=== PATIENT | female | born 1965 | race Hispanic/Latino ===

== ENCOUNTER 2017-02-01 16:51 | Emergency (ER) | payer MEDICARE, MEDICAID ==
[2017-02-01 17:05] VITALS: BMI 22.6
[2017-02-01 17:17] VITALS: BP 138/86; PULSE 63; RESP 17; TEMP 98.3; O2SAT 100
--- NOTE | 2017-02-01 17:21 | C.PDOC ---
History Of Present Illness 51 yr old female presents to the ER requesting refill for Haldol. Patient states she recently had her insurance changed therefore had to find a new psychiatrist. Patient states she ran out of her Haldol 3 days ago. Pt has an appointment with the new doctor on February 05. Notes she feels "good". Patient denies any suicidal ideation, homicidal ideation, chest pain, SOB, nausea, vomiting, weakness or numbness. Time Seen by Provider: 02/01/17 17:13 Chief Complaint (Nursing): Med Refill History Per: Patient History/Exam Limitations: no limitations Onset/Duration Of Symptoms: Unknown Past Medical History Reviewed: Historical Data, Nursing Documentation, Vital Signs Vital Signs: Last Vital Signs Temp 98.3 F 02/01/17 17:06 Pulse 63 02/01/17 17:06 Resp 17 02/01/17 17:06 BP 138/86 02/01/17 17:06 Pulse Ox 100 02/01/17 20:03 - Medical History PMH: Anxiety, Depression, Diabetes, Fractures, Hypothyroidism Family History: States: No Known Family Hx - Social History Hx Tobacco Use: Yes Hx Alcohol Use: Yes Hx Substance Use: No - Immunization History Hx Tetanus Toxoid Vaccination: Yes Hx Influenza Vaccination: No Hx Pneumococcal Vaccination: No Review Of Systems Except As Marked, All Systems Reviewed And Found Negative. Cardiovascular: Negative for: Chest Pain Respiratory: Negative for: Shortness of Breath Gastrointestinal: Negative for: Nausea, Vomiting Neurological: Negative for: Weakness, Numbness Psych: Negative for: Suicidal ideation Physical Exam - Physical Exam Appears: Well, Non-toxic, No Acute Distress Skin: Warm, Dry, No Rash Head: Atraumatic, Normacephalic Eye(s): bilateral: Normal Inspection, EOMI Nose: Normal Oral Mucosa: Moist Chest: Symmetrical Cardiovascular: No Rhythm Regular Respiratory: No Accessory Muscle Use Extremity: Normal ROM, No Swelling Neurological/Psych: Oriented x3, Normal Speech, Normal Motor Gait: Steady ED Course And Treatment O2 Sat by Pulse Oximetry: 100 Progress Note: Case discussed with Dr Marinelli, agreed upon plan and treatment. Disposition - Disposition Disposition: HOME/ ROUTINE Disposition Time: 17:22 Condition: STABLE Additional Instructions: Follow up with your primary medical doctor or clinic in 2-5 days for further evaluation. Prescriptions: Haloperidol [Haldol] 2 mg PO BID #10 tab Instructions: Medicine Refill (ED) - Clinical Impression Clinical Impression: Medication refill - PA / EL TEACHER / Resident Statement MD/DO has reviewed & agrees with the documentation as recorded. - Scribe Statement The provider has reviewed the documentation as recorded by the Scribe Cathy Aviles All medical record entries made by the Kendallibe were at my direction and personally dictated by me. I have reviewed the chart and agree that the record accurately reflects my personal performance of the history, physical exam, medical decision making, and the department course for this patient. I have also personally directed, reviewed, and agree with the discharge instructions and disposition.
== END 2017-02-01 17:29 | disposition home or self-care (01) ==
LOC: C.ER 16:51
DX: Z76.0 Encounter for issue of repeat prescription (principal)

== ENCOUNTER 2017-04-15 20:44 | Emergency (ER) | payer BC, MEDICAID ==
[2017-04-15 20:45] VITALS: BMI 22.6
[2017-04-15 20:52] VITALS: O2SAT 100
[2017-04-15] MEDS ORDERED: Sodium Chloride 0.9% 1,000 ML IV ONE (21:27)
[2017-04-15 21:32] LABS: BASO # 0.1 K/uL (0.0-0.2); EOS # 0.4 K/uL (0.0-0.7); EOS % 4.2 % (0.0-4.0); HEMOGLOBIN 14.6 g/dL (11.0-16.0); LYMPH # 3.2 K/uL (1.0-4.3); MEAN CELL VOLUME 95.7 fL (81.0-99.0); MEAN CORPUSCULAR HEMOGLOBIN 32.9 pg (27.0-31.0); MEAN CORPUSCULAR HGB CONC 34.4 g/dL (33.0-37.0); MEAN PLATELET VOLUME 8.1 fL (7.2-11.7); MONO # 0.7 K/uL (0.0-0.8); MONO % 7.4 % (0.0-10.0); NEUT # 4.6 K/uL (1.8-7.0); NEUT % 51.4 % (50.0-75.0); NRBC % 0.1 % (0.0-2.0); RBC 4.45 Mil/uL (3.80-5.20); RED CELL DISTRIBUTION WIDTH 12.8 % (11.5-14.5)
[2017-04-15] MEDS ORDERED: Sodium Chloride 0.9% 1,000 ML ONE (21:37)
[2017-04-15 21:44] LABS: HCG,QUALITATIVE URINE NEGATIVE (NEGATIVE); SQUAMOUS EPITHIAL 5 /hpf (0-5); URINE BACTERIA RARE (<OCC); URINE BILIRUBIN NEGATIVE (NEGATIVE); URINE BLOOD NEGATIVE (NEGATIVE); URINE CLARITY Clear (Clear); URINE COLOR Yellow (YELLOW); URINE GLUCOSE (UA) NORMAL (Normal); URINE LEUKOCYTE ESTERASE NEG Leu/uL (Negative); URINE NITRATE NEGATIVE (NEGATIVE); URINE PROTEIN NEGATIVE (NEGATIVE); URINE UROBILINOGEN NORMAL mg/dL (0.2-1.0)
[2017-04-15 21:45] LABS: GFR AFRICAN-AMERICAN > 60; GFR NON-AFRICAN AMERICAN > 60
[2017-04-15 21:46] LABS: ALB/GLOB RATIO 1.2 (1.0-2.1); ALT/SGPT 18 U/L (9-52); AST/SGOT 26 U/L (14-36); BLOOD UREA NITROGEN 15 mg/dL (7-17); CALCIUM 9.1 mg/dl (8.6-10.4)
--- NOTE | 2017-04-15 22:13 | C.PDOC ---
History Of Present Illness 51 year old female presents to the ED with complaints of nausea, vomiting, and mild abdominal pain for one week. Patient states she has been "very hot" as well and thinks she may be . LMP was two weeks ago, has not taken home test. Patient denies fever, cough, runny nose, sore throat, chest pain, SOB, dysuria/hematuria, vaginal discharge. Time Seen by Provider: 04/15/17 20:55 Chief Complaint (Nursing): Abdominal Pain History Per: Patient History/Exam Limitations: no limitations Onset/Duration Of Symptoms: Days (one week ) Current Symptoms Are (Timing): Still Present Severity: Mild Location Of Pain/Discomfort: Diffuse Quality Of Discomfort: "Pain" Associated Symptoms: Nausea, Vomiting. denies: Fever, Chills Abnormal Vaginal Bleeding: No Past Medical History Reviewed: Historical Data, Nursing Documentation, Vital Signs Vital Signs: Last Vital Signs Temp 97.8 F 04/15/17 22:16 Pulse 65 04/15/17 22:16 Resp 16 04/15/17 22:16 BP 128/76 04/15/17 22:16 Pulse Ox 100 04/16/17 00:48 - Medical History PMH: Anxiety, Depression, Diabetes, Fractures, Hypothyroidism Family History: States: No Known Family Hx - Social History Hx Tobacco Use: Yes Hx Alcohol Use: Yes Hx Substance Use: No - Immunization History Hx Tetanus Toxoid Vaccination: Yes Hx Influenza Vaccination: No Hx Pneumococcal Vaccination: No Review Of Systems Except As Marked, All Systems Reviewed And Found Negative. Constitutional: Negative for: Fever, Chills Cardiovascular: Negative for: Chest Pain, Palpitations Respiratory: Negative for: Cough, Shortness of Breath Gastrointestinal: Positive for: Nausea, Vomiting, Abdominal Pain. Negative for : Diarrhea Genitourinary: Negative for: Dysuria Physical Exam - Physical Exam Appears: Well, Non-toxic, No Acute Distress Skin: Warm, Dry Head: Normacephalic Eye(s): bilateral: Normal Inspection Oral Mucosa: Moist Neck: Supple Cardiovascular: Rhythm Regular Respiratory: Normal Breath Sounds, No Rales, No Rhonchi, No Wheezing Gastrointestinal/Abdominal: Normal Exam, Bowel Sounds, Soft, No Tenderness Back: No CVA Tenderness Extremity: Normal ROM, No Tenderness Neurological/Psych: Oriented x3 ED Course And Treatment - Laboratory Results Result Diagrams: 04/15/17 21:27 04/15/17 21:27 O2 Sat by Pulse Oximetry: 100 (room air ) Pulse Ox Interpretation: Normal Progress Note: Blood work, UA, Upreg ordered and reviewed. Patient givan IV NS bolus, IV zofran. Reevaluation Time: 22:15 Reassessment Condition: Improved (Patient reassessed, is resting comfortably and states she feels well. On exam, abdomen is soft and nontender. Blood work , UA, Upreg unremarkable. Patient is well appearing, with normal vitals. Rx given for Zofran ODT, was instructed to drink plenty of fluids and follow up with PMD/clinic in 1-2 days. She understands she should return to ED if symptoms worsen.) Disposition Counseled Patient/Family Regarding: Studies Performed, Diagnosis, Need For Followup, Rx Given - Disposition Referrals: César Valenzuela MD [Medical Doctor] - Disposition: HOME/ ROUTINE Disposition Time: 22:15 Condition: STABLE Additional Instructions: FOLLOW UP WITH YOUR DOCTOR IN 1-2 DAYS DRINK PLENTY OF CLEAR FLUIDS USE MEDICATION FOR NAUSEA NEEDED RETURN TO ER IF SYMPTOMS WORSEN Prescriptions: Ondansetron [Zofran Odt] 4 mg PO Q8 PRN #10 odt PRN Reason: Nausea/Vomiting Instructions: Acute Nausea and Vomiting (ED) Print Language: JAPANESE - POA Present On Arrival: None - Clinical Impression Clinical Impression: Nausea, Vomiting - Scribe Statement The provider has reviewed the documentation as recorded by the Scribe Lorena Vu All medical record entries made by the Scribe were at my direction and personally dictated by me. I have reviewed the chart and agree that the record accurately reflects my personal performance of the history, physical exam, medical decision making, and the department course for this patient. I have also personally directed, reviewed, and agree with the discharge instructions and disposition.
[2017-04-15 22:17] VITALS: BP 128/76; PULSE 65; RESP 16; TEMP 97.8
== END 2017-04-15 22:26 | disposition home or self-care (01) ==
LOC: C.ER 20:44
DX: R11.2 Nausea with vomiting, unspecified (principal)
CPT/HCPCS: 80053; 81001; 82550; 82948; 84703; 85025; 96361; 96374; 99283; J2405; J7040

== ENCOUNTER 2017-09-25 23:18 | Emergency (ER) | payer OTHER, MEDICAID ==
[2017-09-25 23:18] VITALS: BMI 22.6
[2017-09-25 23:26] VITALS: RESP 16
[2017-09-25] MEDS ORDERED: Sodium Chloride 0.9% 1,000 ML IV ONE (23:53)
[2017-09-26 00:05] LABS: BASO # 0.1 K/uL (0.0-0.2); BASO % 1.1 % (0.0-2.0); EOS # 0.5 K/uL (0.0-0.7); EOS % 4.2 % (0.0-4.0); HEMATOCRIT 46.4 % (34.0-47.0); LYMPH # 3.3 K/uL (1.0-4.3); LYMPH % 29.4 % (20.0-40.0); MEAN CELL VOLUME 95.9 fL (81.0-99.0); MEAN CORPUSCULAR HEMOGLOBIN 32.8 pg (27.0-31.0); MEAN CORPUSCULAR HGB CONC 34.2 g/dL (33.0-37.0); MEAN PLATELET VOLUME 8.2 fL (7.2-11.7); MONO % 8.7 % (0.0-10.0); NRBC % 0.1 % (0.0-2.0); RED CELL DISTRIBUTION WIDTH 13.1 % (11.5-14.5); WHITE BLOOD COUNT 11.4 K/uL (4.8-10.8)
[2017-09-26 00:19] LABS: BILIRUBIN,TOTAL 0.6 mg/dL (0.2-1.3); CALCIUM 8.8 mg/dl (8.6-10.4); GFR AFRICAN-AMERICAN > 60; GLUCOSE,RANDOM 192 mg/dL (65-105); TOTAL PROTEIN 8.4 g/dL (6.3-8.3)
--- NOTE | 2017-09-26 00:19 | C.PDOC ---
History Of Present Illness 51 year old female presents to the ED for evaluation of diarrhea which has been intermittent for "years" but worsened today. Patient reports having 10-15 episodes of watery diarrhea associated with diffuse lower abdominal pain and cramping. Patient states her stool was initially green then progressed to a brown, coffee-ground color. Patient denies fever, chills, nausea, vomiting, and sick contacts. Time Seen by Provider: 09/25/17 23:42 Chief Complaint (Nursing): Abdominal Pain History Per: Patient History/Exam Limitations: no limitations Onset/Duration Of Symptoms: Hrs, Intermittent Episodes ("years") Current Symptoms Are (Timing): Worse Location Of Pain/Discomfort: Other (lower ) Radiation Of Pain To:: None Quality Of Discomfort: Cramping, "Pain" Associated Symptoms: Diarrhea. denies: Fever, Chills, Nausea, Vomiting Additional History Per: Patient Abnormal Vaginal Bleeding: No Past Medical History Reviewed: Historical Data, Nursing Documentation, Vital Signs Vital Signs: Last Vital Signs Temp 97.3 F L 09/25/17 23:20 Pulse 97 H 09/25/17 23:20 Resp 16 09/25/17 23:20 BP 142/91 H 09/25/17 23:20 Pulse Ox 96 09/26/17 00:28 - Medical History PMH: Anxiety, Depression, Diabetes, Fractures, Hypothyroidism Surgical History: No Surg Hx Family History: States: Unknown Family Hx - Social History Hx Tobacco Use: Yes Hx Alcohol Use: Yes Hx Substance Use: No - Immunization History Hx Tetanus Toxoid Vaccination: Yes Hx Influenza Vaccination: No Hx Pneumococcal Vaccination: No Review Of Systems Constitutional: Negative for: Fever, Chills Gastrointestinal: Positive for: Abdominal Pain (lower ), Diarrhea. Negative for : Nausea, Vomiting Physical Exam - Physical Exam Appears: Non-toxic, No Acute Distress Skin: Normal Color, Warm, Dry Oral Mucosa: Moist Neck: Supple Chest: Symmetrical, No Deformity, No Tenderness Cardiovascular: Rhythm Regular, No Murmur Respiratory: Normal Breath Sounds, No Rales, No Rhonchi, No Wheezing Gastrointestinal/Abdominal: Bowel Sounds (hyperactive ), Soft, Tenderness (to lower abdomen on palpation ), No Guarding, No Rebound Rectal: Other (empty vault with red-brown mucous-like streaking ) Extremity: Normal ROM, Capillary Refill (less than 2 seconds ) Neurological/Psych: Oriented x3, Normal Speech, Normal Cognition Gait: Steady ED Course And Treatment - Laboratory Results Result Diagrams: 09/25/17 23:59 09/25/17 23:59 Lab Interpretation: No Acute Changes O2 Sat by Pulse Oximetry: 96 (on RA) Pulse Ox Interpretation: Normal Progress Note: Bloodwork and urinalysis ordered and reviewed. IV fluids administered. Reevaluation Time: 00:47 Reassessment Condition: Improved (after IV vluids) Disposition Counseled Patient/Family Regarding: Studies Performed, Diagnosis, Need For Followup - Disposition Referrals: César Valenzuela MD [Medical Doctor] - Disposition: HOME/ ROUTINE Disposition Time: 00:47 Condition: STABLE Instructions: Acute Diarrhea (ED), Nutrition Tips for Relief of Diarrhea (ED) Forms: [employer] (Thai) - Clinical Impression Clinical Impression: Diarrhea - Scribe Statement The provider has reviewed the documentation as recorded by the Scribe (Selena Anand) Provider Attestation: All medical record entries made by the Scribe were at my direction and personally dictated by me. I have reviewed the chart and agree that the record accurately reflects my personal performance of the history, physical exam, medical decision making, and the department course for this patient. I have also personally directed, reviewed, and agree with the discharge instructions and disposition.
[2017-09-26 00:40] LABS: ALKALINE PHOSPHATASE 83 U/L (38-126); ALT/SGPT 35 U/L (9-52); AST/SGOT 25 U/L (14-36); BLOOD UREA NITROGEN 10 mg/dL (7-17); CARBON DIOXIDE 26 mmol/L (22-30); CHLORIDE 102 mmol/L (98-107); POTASSIUM 4.3 mmol/L (3.6-5.2); SODIUM 134 mmol/L (132-148)
[2017-09-26 00:51] VITALS: BP 147/87; PULSE 79; TEMP 97.2; O2SAT 97
== END 2017-09-26 00:57 | disposition home or self-care (01) ==
LOC: C.ER 23:18
DX: R19.7 Diarrhea, unspecified (principal)
CPT/HCPCS: 80053; 83690; 85025; 96360; 99283; G0328; J7040

== ENCOUNTER 2017-12-25 18:36 | Emergency (ER) | payer OTHER, MEDICAID ==
[2017-12-25 18:42] VITALS: BMI 28.0
[2017-12-25 18:44] VITALS: RESP 18; O2SAT 99
[2017-12-25] MEDS ORDERED: Sodium Chloride 0.9% 1,000 ML IV ONE (19:32)
--- NOTE | 2017-12-25 19:32 | C.PDOC ---
History Of Present Illness The patient presents to the ED for evaluation of abdominal pain and diarrhea which began around 2 days ago. Patient reports having multiple episodes of liquid-like stools, mild nausea and decreased PO intake. Patient was advised by her PMD to present to the ED for further evaluation. She denies fever, chills, and vomiting. Time Seen by Provider: 12/25/17 19:31 Chief Complaint (Nursing): Abdominal Pain History Per: Patient History/Exam Limitations: no limitations Onset/Duration Of Symptoms: Days (2) Current Symptoms Are (Timing): Still Present Severity: Mild Pain Scale Rating Of: 2 Location Of Pain/Discomfort: Diffuse Radiation Of Pain To:: None Quality Of Discomfort: "Pain" Associated Symptoms: Nausea, Diarrhea. denies: Fever, Chills, Vomiting Exacerbating Factors: None Alleviating Factors: None Last Bowel Movement: Today Recent travel outside of the [place]: No Additional History Per: Patient Abnormal Vaginal Bleeding: No Past Medical History Reviewed: Historical Data, Nursing Documentation, Vital Signs Vital Signs: Last Vital Signs Temp 97.6 F 12/25/17 21:05 Pulse 79 12/25/17 21:05 Resp 18 12/25/17 21:05 BP 101/62 12/25/17 21:05 Pulse Ox 99 12/25/17 21:08 - Medical History PMH: Anxiety, Depression, Diabetes, Fractures, Hypothyroidism Surgical History: No Surg Hx Family History: States: Unknown Family Hx - Social History Hx Tobacco Use: Yes Hx Alcohol Use: Yes Hx Substance Use: No - Immunization History Hx Tetanus Toxoid Vaccination: No Hx Influenza Vaccination: No Hx Pneumococcal Vaccination: No Review Of Systems Constitutional: Negative for: Fever, Chills Cardiovascular: Negative for: Chest Pain, Palpitations Respiratory: Negative for: Cough, Shortness of Breath Gastrointestinal: Positive for: Nausea, Abdominal Pain, Diarrhea. Negative for : Vomiting Genitourinary: Negative for: Dysuria, Hematuria Skin: Negative for: Rash, Lesions, Jaundice, Bruising Neurological: Negative for: Weakness, Numbness Physical Exam - Physical Exam Appears: Non-toxic, No Acute Distress Skin: Warm, Dry Head: Normacephalic Eye(s): bilateral: Normal Inspection Oral Mucosa: Moist Neck: Supple Chest: Symmetrical, No Deformity, No Tenderness Cardiovascular: Rhythm Regular, No Murmur Respiratory: No Rales, No Rhonchi, No Wheezing Gastrointestinal/Abdominal: Soft, Tenderness (mild, diffuse ), No Guarding, No Rebound, Other (tympanic to percussion ) Extremity: Normal ROM, Capillary Refill (less than 2 seconds ) Neurological/Psych: Oriented x3 Gait: Steady ED Course And Treatment - Laboratory Results Result Diagrams: 12/25/17 19:49 12/25/17 19:49 O2 Sat by Pulse Oximetry: 99 (on RA ) Pulse Ox Interpretation: Normal Progress Note: Bloodwork and urinalysis ordered and reviewed. Pepcid IVP, Zofran IVP, and IV Fluids administered. Reevaluation Time: 21:30 Reassessment Condition: Improved Disposition Counseled Patient/Family Regarding: Studies Performed, Diagnosis, Need For Followup - Disposition Disposition: HOME/ ROUTINE Disposition Time: 19:32 Condition: FAIR Additional Instructions: May use kaopectate for the diarrhea Prescriptions: Ondansetron ODT [Zofran ODT] 4 mg PO BID PRN #10 odt PRN Reason: Nausea/Vomiting Instructions: Diarrhea in Adolescents and Adults Forms: [employer] (Romansh) - Clinical Impression Clinical Impression: Abdominal pain, Diarrhea - Scribe Statement The provider has reviewed the documentation as recorded by the Scribe (Selena Anand) Provider Attestation: All medical record entries made by the Scribe were at my direction and personally dictated by me. I have reviewed the chart and agree that the record accurately reflects my personal performance of the history, physical exam, medical decision making, and the department course for this patient. I have also personally directed, reviewed, and agree with the discharge instructions and disposition.
[2017-12-25 19:54] LABS: BASO # 0.1 K/uL (0.0-0.2); BASO % 0.8 % (0.0-2.0); EOS # 0.3 K/uL (0.0-0.7); HEMOGLOBIN 14.7 g/dL (11.0-16.0); LYMPH # 2.7 K/uL (1.0-4.3); LYMPH % 30.9 % (20.0-40.0); MEAN CELL VOLUME 95.8 fL (81.0-99.0); MEAN CORPUSCULAR HEMOGLOBIN 33.3 pg (27.0-31.0); MEAN CORPUSCULAR HGB CONC 34.7 g/dL (33.0-37.0); MEAN PLATELET VOLUME 7.5 fL (7.2-11.7); MONO # 0.6 K/uL (0.0-0.8); MONO % 6.7 % (0.0-10.0); NEUT # 5.1 K/uL (1.8-7.0); NEUT % 58.6 % (50.0-75.0); NRBC % 0.1 % (0.0-2.0); RBC 4.42 Mil/uL (3.80-5.20); RED CELL DISTRIBUTION WIDTH 12.9 % (11.5-14.5); WHITE BLOOD COUNT 8.6 K/uL (4.8-10.8)
[2017-12-25] MEDS ORDERED: Sodium Chloride 0.9% 1,000 ML ONE (19:55)
[2017-12-25 20:04] LABS: INR 0.9; PROTHROMBIN TIME 9.7 SECONDS (9.7-12.2)
[2017-12-25 20:05] LABS: SQUAMOUS EPITHIAL 7 /hpf (0-5); URINE BACTERIA RARE (<OCC); URINE BILIRUBIN NEGATIVE (NEGATIVE); URINE CLARITY Hazy (Clear); URINE COLOR Yellow (YELLOW); URINE GLUCOSE (UA) 3+ mg/dL (Normal); URINE LEUKOCYTE ESTERASE NEG Leu/uL (Negative); URINE PROTEIN NEGATIVE (NEGATIVE); URINE UROBILINOGEN NORMAL mg/dL (0.2-1.0)
[2017-12-25 20:11] LABS: ALB/GLOB RATIO 1.3 (1.0-2.1); ALBUMIN 3.8 g/dL (3.5-5.0); ALT/SGPT 17 U/L (9-52); AST/SGOT 20 U/L (14-36); BLOOD UREA NITROGEN 8 mg/dL (7-17); GFR AFRICAN-AMERICAN > 60; GFR NON-AFRICAN AMERICAN > 60; LIPASE 28 U/L (23-300); URINE BLOOD TRACE (NEGATIVE)
[2017-12-25 21:06] VITALS: BP 101/62; PULSE 79; TEMP 97.6
== END 2017-12-25 21:47 | disposition home or self-care (01) ==
LOC: C.ER 18:36
DX: R19.7 Diarrhea, unspecified (principal); R10.9 Unspecified abdominal pain; E11.9 Type 2 diabetes mellitus without complications; E03.9 Hypothyroidism, unspecified; Z72.0 Tobacco use
CPT/HCPCS: 80053; 81001; 83690; 85025; 85610; 85730; 96361; 96374; 96375; 99284; J2405; J7040

== ENCOUNTER 2018-01-18 14:57 | Emergency (ER) | payer MEDICARE, MEDICAID ==
[2018-01-18 14:57] VITALS: BMI 28.0
[2018-01-18 15:16] VITALS: BP 117/84; PULSE 98; RESP 18; TEMP 98.1; O2SAT 96
--- NOTE | 2018-01-18 15:32 | C.PDOC ---
History Of Present Illness Jeannie Irwin is a 52 year old female, with a past medical history of diabetes, who presents to the emergency department complaining of swelling and pain around the nail bed of the right thumb onset for x2 weeks. Patient states boyfriend has been poking it with clean needle and pus has been coming out. Patient is also complaining of an itchy vaginal discharge onset for x1 month. She reports similar symptoms in the past due to yeast infection. She is currently on her menses. She denies any other medical complaints. PMD: None provided. Time Seen by Provider: 01/18/18 15:12 Chief Complaint (Nursing): Finger,Hand,&Wrist History Per: Patient History/Exam Limitations: no limitations Onset/Duration Of Symptoms: Days (x2 weeks) Current Symptoms Are (Timing): Still Present Past Medical History Reviewed: Historical Data, Nursing Documentation, Vital Signs Vital Signs: Last Vital Signs Temp 98.1 F 01/18/18 15:12 Pulse 98 H 01/18/18 15:12 Resp 18 01/18/18 15:12 BP 117/84 01/18/18 15:12 Pulse Ox 96 01/18/18 15:35 - Medical History PMH: Anxiety, Depression, Diabetes, Fractures, Hypothyroidism Surgical History: No Surg Hx Family History: States: Unknown Family Hx - Social History Hx Tobacco Use: Yes Hx Alcohol Use: Yes Hx Substance Use: No - Immunization History Hx Tetanus Toxoid Vaccination: Yes Hx Influenza Vaccination: No Hx Pneumococcal Vaccination: No Review Of Systems Except As Marked, All Systems Reviewed And Found Negative. Genitourinary: Positive for: Vaginal Discharge (itchy) Musculoskeletal: Positive for: Hand Pain (swelling and pain around the nail bed of the right thumb) Physical Exam - Physical Exam Appears: Other (comfortable) Skin: Normal Color, Warm, Dry Head: Atraumatic, Normacephalic Eye(s): bilateral: Normal Inspection, PERRL, EOMI Neck: Normal ROM Chest: Symmetrical Cardiovascular: Rhythm Regular, No Murmur Respiratory: Normal Breath Sounds, No Wheezing Gastrointestinal/Abdominal: Normal Exam, Soft, No Tenderness Pelvic: Other (Patient refused pelvic because she currently has menses) Extremity: Normal ROM (upper extremities), No Deformity, Swelling (Right thumb around the nail bed, swollen and erythematous but no purulent discharge) Neurological/Psych: Oriented x3 ED Course And Treatment O2 Sat by Pulse Oximetry: 96 (RA) Pulse Ox Interpretation: Normal Progress Note: Initial Impression: Paronychia, vaginal yeast infection. Initial Plan: -Cleocin 300 mg PO Diflucan 200 mg PO. Patient is medical stable for discharge with prescriptions for cleocin for finger, diflucan for yeast infection, and probiotic. Patient advised not to take probiotic at the same time as abx and to follow up with outpatient health clinic. Disposition Counseled Patient/Family Regarding: Diagnosis, Need For Followup, Rx Given - Disposition Referrals: [facility] [Outside] Disposition: HOME/ ROUTINE Disposition Time: 15:30 Condition: STABLE Additional Instructions: FOLLOW UP WITH YOUR DOCTOR/CLINIC IN 1-2 DAYS USE MEDICATIONS DIRECTED, DO NOT TAKE PROBIOTIC AT SAME TIME ANTIBIOTIC RETURN TO ER IF SYMPTOMS WORSEN Prescriptions: Clindamycin [Cleocin] 300 mg PO TID #21 cap Fluconazole [Diflucan] 150 mg PO DAILY #1 tab Lactobacillus Combination No.4 [Probiotic] 1 each PO DAILY #10 capsule Instructions: Vaginal Yeast Infection (DC), Paronychia (DC) Forms: [employer] (C[place] Rican) Print Language: CAMBODIAN - POA Present On Arrival: None - Clinical Impression Clinical Impression: Paronychia, Vulvovaginal candidiasis - Scribe Statement The provider has reviewed the documentation as recorded by the Reji Sigala Provider Attestation: All medical record entries made by the Reji were at my direction and personally dictated by me. I have reviewed the chart and agree that the record accurately reflects my personal performance of the history, physical exam, medical decision making, and the department course for this patient. I have also personally directed, reviewed, and agree with the discharge instructions and disposition.
== END 2018-01-18 15:48 | disposition home or self-care (01) ==
LOC: C.ER 14:57
DX: L03.011 Cellulitis of right finger (principal); B37.3 Candidiasis of vulva and vagina

== ENCOUNTER 2018-04-20 15:55 | Emergency (ER) | payer MEDICARE, MEDICAID ==
[2018-04-20 16:20] VITALS: BMI 23.9
--- NOTE | 2018-04-20 16:31 | C.PDOC ---
History Of Present Illness 52 y/o female presents to the ED requesting a medication refill for klonopin. States she ran out 4 days ago and has not been able to see her psychiatrist this week. Patient complains of feeling anxious. Otherwise has no headaches, dizziness, or other complaints. Time Seen by Provider: 04/20/18 16:10 Chief Complaint (Nursing): Med Refill History Per: Patient History/Exam Limitations: no limitations Onset/Duration Of Symptoms: Days Current Symptoms Are (Timing): Still Present Past Medical History Reviewed: Historical Data, Nursing Documentation, Vital Signs Vital Signs: Last Vital Signs Temp Pulse Resp 18 04/20/18 16:36 BP Pulse Ox - Medical History PMH: Anxiety, Depression, Diabetes, Fractures, Hypothyroidism Family History: States: Unknown Family Hx - Social History Hx Tobacco Use: Yes Hx Alcohol Use: Yes Hx Substance Use: No - Immunization History Hx Tetanus Toxoid Vaccination: Yes Hx Influenza Vaccination: No Hx Pneumococcal Vaccination: No Review Of Systems Except As Marked, All Systems Reviewed And Found Negative. Constitutional: Negative for: Fever Neurological: Negative for: Seizures, Headache, Dizziness Psych: Positive for: Anxiety Physical Exam - Physical Exam Appears: Non-toxic, No Acute Distress Skin: Normal Color, Warm, Dry Head: Atraumatic, Normacephalic Eye(s): bilateral: Normal Inspection Nose: Normal Neck: Normal ROM, Supple Chest: Symmetrical, No Deformity Respiratory: No Accessory Muscle Use, Other (No respiratory distress) Extremity: Bilateral: Atraumatic, Normal Color And Temperature Pulses: Left Dorsalis Pedis: Normal, Right Dorsalis Pedis: Normal Neurological/Psych: Oriented x3, Normal Speech Gait: Steady Medical Decision Making Medical Decision Making: Impression: 52 y/o F requesting med refill Time: 16:33 Initial Plan: --Ativan 1 mg PO Patient provided with resources for [facility] outpatient psychiatric services. Stable for d/c home. Disposition Counseled Patient/Family Regarding: Diagnosis, Need For Followup - Disposition Disposition: HOME/ ROUTINE Disposition Time: 16:39 Condition: STABLE Additional Instructions: [facility] Mental health service in [place], [place] Address: [address] [place] [id number] Hours: Open Closes 6PM Instructions: Anxiety, Adult (DC) Forms: [employer] (Wolof) - POA Present On Arrival: None - Clinical Impression Clinical Impression: Anxiety - Scribe Statement The provider has reviewed the documentation as recorded by the Scribe Ashley Villavicencio Provider Attestation: All medical record entries made by the Kendallibe were at my direction and personally dictated by me. I have reviewed the chart and agree that the record accurately reflects my personal performance of the history, physical exam, medical decision making, and the department course for this patient. I have also personally directed, reviewed, and agree with the discharge instructions and disposition.
[2018-04-20 16:42] VITALS: RESP 18
== END 2018-04-20 16:42 | disposition home or self-care (01) ==
LOC: C.ER 15:55
DX: F41.9 Anxiety disorder, unspecified (principal)

== ENCOUNTER 2018-06-07 15:50 | Emergency (ER) | payer MEDICARE ==
[2018-06-07 15:56] VITALS: BMI 23.0
[2018-06-07 15:58] VITALS: BP 104/75; PULSE 90; RESP 18; TEMP 97.7; O2SAT 100
--- NOTE | 2018-06-07 16:49 | C.PDOC ---
History Of Present Illness 52 year old female, with history of NIDDM, presents to the emergency department with complaints of itchy vaginal discharge and white spots on tongue. Patient has been noncompliant with metformin for the past 2 weeks because she has been taking exams. also, unable to check her sugar level at home due to machine being broke since a month ago and has not followed up with pmd.. She denies any abdominal pain, fever, or chills. denies dysuria, frequency or urgency. Time Seen by Provider: 06/07/18 16:08 Chief Complaint (Nursing): Female Genitourinary History Per: Patient History/Exam Limitations: no limitations Onset/Duration Of Symptoms: Days Current Symptoms Are (Timing): Still Present Past Medical History Reviewed: Historical Data, Nursing Documentation, Vital Signs Vital Signs: Last Vital Signs Temp 97.7 F 06/07/18 16:11 Pulse 90 06/07/18 16:11 Resp 18 06/07/18 16:11 BP 104/75 06/07/18 16:11 Pulse Ox 100 06/07/18 22:13 - Medical History PMH: Anxiety, Depression, Diabetes, Fractures, Hypothyroidism Family History: States: No Known Family Hx - Social History Hx Tobacco Use: Yes Hx Alcohol Use: Yes Hx Substance Use: No - Immunization History Hx Tetanus Toxoid Vaccination: Yes Hx Influenza Vaccination: No Hx Pneumococcal Vaccination: No Review Of Systems Constitutional: Negative for: Fever, Chills ENT: Positive for: Other (white spots on tongue) Cardiovascular: Negative for: Chest Pain Respiratory: Negative for: Shortness of Breath Gastrointestinal: Negative for: Nausea, Vomiting, Abdominal Pain Genitourinary: Positive for: Vaginal Discharge. Negative for: Dysuria Neurological: Negative for: Weakness, Numbness Physical Exam - Physical Exam Appears: Non-toxic, No Acute Distress Skin: Warm, Dry Head: Atraumatic, Normacephalic Eye(s): bilateral: Normal Inspection Oral Mucosa: Moist, Other (no white spots noted) Tongue: No Other (white spots) Lips: Normal Appearing Teeth: Normal Dentition Gingiva: Normal Appearing Neck: Supple Cardiovascular: Rhythm Regular, No Murmur Respiratory: Normal Breath Sounds, No Rales, No Rhonchi, No Wheezing Gastrointestinal/Abdominal: Soft, No Tenderness, No Distention Pelvic: Other (Patient declines exam to be done) Neurological/Psych: Oriented x3, Normal Speech ED Course And Treatment O2 Sat by Pulse Oximetry: 100 (RA) Pulse Ox Interpretation: Normal Medical Decision Making Medical Decision Making: Plan: -Labs -Urinalysis 1703 long conversation had with pt regarding compliance with medications and potential complications of uncontrolled dm. pt agrees to start metformin this evening. declines pelvic exam. advised to see her pmd sarha for rx for new glucometer, as well as follow up with calendar control clerk blood bank Disposition Counseled Patient/Family Regarding: Studies Performed, Diagnosis, Need For Followup, Rx Given - Disposition Referrals: César Valenzuela MD [Medical Doctor] - Disposition: HOME/ ROUTINE Disposition Time: 17:05 Condition: GOOD Additional Instructions: Please follow up with Dr Valenzuela as soon as possible- you need to get prescription for a new glucometer. Use one applicator of ointment in vagina at night for the next week. Repeat takig pill in 3 days if symptoms not improving. Follow up with your calendar control clerk blood bank as well. Prescriptions: Fluconazole [Diflucan] 150 mg PO ONCE #1 tab Miconazole/Cleanser 17 On Wipe [Monistat 7 Combination Pack] 1 each VG HS #1 kit Instructions: Vaginal Yeast Infection (DC) Forms: [facility] (Luxembourgish), General Discharge Instructions - Clinical Impression Clinical Impression: Vulvovaginal candidiasis, Hyperglycemia due to type 2 diabetes mellitus - PA / MATERIAL HANDLER 1ST SHIFT / Resident Statement MD/DO has reviewed & agrees with the documentation as recorded. - Scribe Statement The provider has reviewed the documentation as recorded by the Scribe Adrianna Ramirez All medical record entries made by the Scribe were at my direction and personally dictated by me. I have reviewed the chart and agree that the record accurately reflects my personal performance of the history, physical exam, medical decision making, and the department course for this patient. I have also personally directed, reviewed, and agree with the discharge instructions and disposition.
[2018-06-07 16:52] LABS: SQUAMOUS EPITHIAL 27 /hpf (0-5); URINE BACTERIA FEW (<OCC); URINE BILIRUBIN NEGATIVE (NEGATIVE); URINE BLOOD NEGATIVE (NEGATIVE); URINE CLARITY Hazy (Clear); URINE COLOR Yellow (YELLOW); URINE GLUCOSE (UA) 3+ mg/dL (Normal); URINE LEUKOCYTE ESTERASE TRACE Leu/uL (Negative); URINE PROTEIN NEGATIVE (NEGATIVE); URINE UROBILINOGEN NORMAL mg/dL (0.2-1.0)
[2018-06-07 16:53] LABS: HCG,QUALITATIVE URINE NEGATIVE (NEGATIVE)
== END 2018-06-07 17:17 | disposition home or self-care (01) ==
LOC: C.ER 15:50
DX: B37.3 Candidiasis of vulva and vagina (principal); E11.65 Type 2 diabetes mellitus with hyperglycemia; E03.9 Hypothyroidism, unspecified; Z72.0 Tobacco use

== ENCOUNTER 2018-07-18 15:10 | Inpatient (IN) | payer MEDICARE ==
[2018-07-18 15:10] VITALS: BMI 23.0
[2018-07-18] MEDS ORDERED: Sodium Chloride 0.9% 1,000 ML IV ONE (16:35)
[2018-07-18 16:46] LABS: BASO # 0.1 K/uL (0.0-0.2); BASO % 0.8 % (0.0-2.0); EOS # 0.1 K/uL (0.0-0.7); EOS % 1.3 % (0.0-4.0); HEMOGLOBIN 15.1 g/dL (11.0-16.0); LYMPH # 1.8 K/uL (1.0-4.3); LYMPH % 17.1 % (20.0-40.0); MEAN CELL VOLUME 97.1 fL (81.0-99.0); MEAN CORPUSCULAR HEMOGLOBIN 33.5 pg (27.0-31.0); MEAN CORPUSCULAR HGB CONC 34.5 g/dL (33.0-37.0); MEAN PLATELET VOLUME 8.3 fL (7.2-11.7); MONO # 0.9 K/uL (0.0-0.8); MONO % 8.5 % (0.0-10.0); NEUT # 7.6 K/uL (1.8-7.0); NEUT % 72.3 % (50.0-75.0); NRBC % 0.1 % (0.0-2.0); RBC 4.49 Mil/uL (3.80-5.20); RED CELL DISTRIBUTION WIDTH 12.8 % (11.5-14.5); WHITE BLOOD COUNT 10.5 K/uL (4.8-10.8)
--- NOTE | 2018-07-18 16:51 | C.PDOC ---
History Of Present Illness 52 y/o female, with PMHx of diabetes, hypothyroidism, anxiety, and depression, is sent to ED by Dr. Valenzuela for admission for uncontrolled diabetes. Pt complains of intermittent nausea, vomiting, watery diarrhea, abdominal cramping for the past month. Pt also complains of oral thrush. Denies fever, back pain, headache, dizziness, or any other associated symptoms at this time. Time Seen by Provider: 07/18/18 16:20 Chief Complaint (Nursing): High Blood Sugar History Per: Patient History/Exam Limitations: no limitations Onset/Duration Of Symptoms: Days Current Symptoms Are (Timing): Still Present Past Medical History Reviewed: Historical Data, Nursing Documentation, Vital Signs Vital Signs: Last Vital Signs Temp 98.5 F 07/18/18 15:27 Pulse 91 H 07/18/18 15:27 Resp 20 07/18/18 15:27 BP 159/96 H 07/18/18 15:27 Pulse Ox 99 07/18/18 15:27 - Medical History PMH: Anxiety, Depression, Diabetes, Fractures, Hypothyroidism Family History: States: Unknown Family Hx - Social History Hx Tobacco Use: Yes Hx Alcohol Use: Yes Hx Substance Use: No - Immunization History Hx Tetanus Toxoid Vaccination: Yes Hx Influenza Vaccination: No Hx Pneumococcal Vaccination: No Review Of Systems Except As Marked, All Systems Reviewed And Found Negative. Constitutional: Negative for: Fever, Chills Cardiovascular: Negative for: Chest Pain, Palpitations Respiratory: Negative for: Cough, Shortness of Breath Gastrointestinal: Positive for: Nausea, Vomiting, Abdominal Pain, Diarrhea Genitourinary: Negative for: Dysuria, Frequency Musculoskeletal: Negative for: Back Pain Neurological: Negative for: Headache, Dizziness Physical Exam - Physical Exam Appears: Non-toxic, No Acute Distress Skin: Normal Color, Warm, Dry Head: Atraumatic, Normacephalic Eye(s): bilateral: Normal Inspection Oral Mucosa: Moist Throat: Normal, No Erythema, No Exudate, No Drooling Neck: Normal ROM, Supple Cardiovascular: Rhythm Regular Respiratory: No Accessory Muscle Use, No Rales, No Rhonchi, Wheezing Gastrointestinal/Abdominal: Soft, No Tenderness, No Guarding, No Rebound Back: No CVA Tenderness Extremity: Normal ROM Neurological/Psych: Oriented x3, Normal Speech ED Course And Treatment - Laboratory Results Result Diagrams: 07/18/18 16:41 07/18/18 16:41 O2 Sat by Pulse Oximetry: 99 (RA) Pulse Ox Interpretation: Normal Medical Decision Making Medical Decision Making: Plan: Blood work Urinalysis CXR EKG IV fluids Case discussed with Dr. César Valenzuela who request pt be admitted under Dr. Josee Anand's service for chronic diarrhea, uncontrolled diabetes and thrush. Disposition Discussed With Dr.: César Valenzuela Counseled Patient/Family Regarding: Studies Performed, Diagnosis - Disposition Disposition: HOSPITALIZED Disposition Time: 17:49 Condition: GUARDED Forms: [employer] (Kazakh) - Clinical Impression Clinical Impression: Oral thrush, Chronic diarrhea, Uncontrolled diabetes mellitus - Scribe Statement The provider has reviewed the documentation as recorded by the Scribe KP All medical record entries made by the Scribe were at my direction and personally dictated by me. I have reviewed the chart and agree that the record accurately reflects my personal performance of the history, physical exam, medical decision making, and the department course for this patient. I have also personally directed, reviewed, and agree with the discharge instructions and disposition. Decision To Admit - Pt Status Changed To: Hospital Disposition Of: Inpatient - Admit Certification Admit to Inpatient:: After my assessment, the patient will require hospitalization for at least two midnights. This is because of the severity of symptoms shown, intensity of services needed, and/or the medical risk in this patient being treated as an outpatient. - InPatient: Physician Admission Certification: I certify that this patient requires 2 or more midnights of care for the following reason:: chronic diarrhea, uncontrole diabetes, oral thrush - . Bed Request Type: Telemetry Patient Diagnosis: Oral thrush, Chronic diarrhea, Uncontrolled diabetes mellitus
[2018-07-18 16:54] LABS: VENOUS BLOOD GAS BASE EXCESS -3.3 mmol/L (0.0-2.0); VENOUS BLOOD GAS PCO2 36 mmHg (40-60); VENOUS BLOOD GAS PO2 35 mm/Hg (30-55); VENOUS BLOOD PH 7.38 (7.32-7.43)
--- NOTE | 2018-07-18 17:13 | RAD ---
Date of service: 07/18/2018 PROCEDURE: CHEST RADIOGRAPH, 1 VIEW HISTORY: Diabetic COMPARISON: No prior study available for comparison. FINDINGS: LUNGS: Questionable tiny nodular density versus slight irregularity along the anterior margin right 1st rib PLEURA: No pneumothorax or pleural fluid seen. CARDIOVASCULAR: Normal. OSSEOUS STRUCTURES: No significant abnormalities. VISUALIZED UPPER ABDOMEN: Normal. OTHER FINDINGS: None. IMPRESSION: No active disease. Questionable tiny nodule versus irregularity of the anterior margin right 1st rib
[2018-07-18 17:14] LABS: ALB/GLOB RATIO 1.3 (1.0-2.1); ALBUMIN 4.1 g/dL (3.5-5.0); ALT/SGPT 19 U/L (9-52); AST/SGOT 18 U/L (14-36); BLOOD UREA NITROGEN 9 mg/dL (7-17); CALCIUM 9.7 mg/dl (8.6-10.4); GFR NON-AFRICAN AMERICAN > 60
[2018-07-18 17:26] LABS: SQUAMOUS EPITHIAL 1 /hpf (0-5); URINE BACTERIA RARE (<OCC); URINE BILIRUBIN NEGATIVE (NEGATIVE); URINE CLARITY Clear (Clear); URINE COLOR Straw (YELLOW); URINE GLUCOSE (UA) 3+ mg/dL (Normal); URINE LEUKOCYTE ESTERASE NEG Leu/uL (Negative); URINE PROTEIN NEGATIVE (NEGATIVE); URINE UROBILINOGEN NORMAL mg/dL (0.2-1.0)
[2018-07-18 17:28] LABS: URINE BLOOD TRACE (NEGATIVE)
--- NOTE | 2018-07-18 18:51 | CP.PCM.HP ---
Present on Admission - Present on Admission Any Indicators Present on Admission: No Past Patient History - Infectious Disease Hx of Infectious Diseases: None - Past Social History Smoking Status: Heavy Smoker > 10 Cigarettes Daily - ENDOCRINE/METABOLIC Hx Hypothyroidism: Yes - MUSCULOSKELETAL/RHEUMATOLOGICAL Hx Fractures: Yes - PSYCHIATRIC Hx Anxiety: Yes Hx Depression: Yes Hx Substance Use: No - SURGICAL HISTORY Hx Surgeries: No - ANESTHESIA Hx Anesthesia: No Meds Allergies/Adverse Reactions: Allergies Allergy/AdvReac Type Severity Reaction Status Date / Time No Known Allergies Allergy Verified 07/18/18 15:36 Results - Vital Signs Recent Vital Signs: Last Vital Signs Temp 98.5 F 07/18/18 15:27 Pulse 91 H 07/18/18 15:27 Resp 20 07/18/18 15:27 BP 159/96 H 07/18/18 15:27 Pulse Ox 99 07/18/18 17:53 - Labs Result Diagrams: 07/18/18 16:41 07/18/18 16:41 Labs: Laboratory Results - last 24 hr 07/18/18 07/18/18 07/18/18 15:30 16:41 16:41 WBC 10.5 RBC 4.49 Hgb 15.1 Hct 43.6 MCV 97.1 MCH 33.5 H MCHC 34.5 RDW 12.8 Plt Count 266 MPV 8.3 Neut % (Auto) 72.3 Lymph % (Auto) 17.1 L [place] % (Auto) 8.5 Eos % (Auto) 1.3 Baso % (Auto) 0.8 Neut # (Auto) 7.6 H Lymph # (Auto) 1.8 [place] # (Auto) 0.9 H Eos # (Auto) 0.1 Baso # (Auto) 0.1 pO2 VBG pH VBG pCO2 VBG HCO3 VBG Total CO2 VBG O2 Sat (Calc) VBG Base Excess VBG Potassium Glucose Lactate Sodium 135 Potassium 4.0 Chloride 103 Carbon Dioxide 18 L Anion Gap 17 BUN 9 Creatinine 0.5 L Est GFR ( Amer) > 60 Est GFR (Non-Af Amer) > 60 POC Glucose (mg/dL) 288 H Random Glucose 267 H Calcium 9.7 Total Bilirubin 0.5 AST 18 ALT 19 Alkaline Phosphatase 116 Total Protein 7.2 Albumin 4.1 Globulin 3.1 Albumin/Globulin Ratio 1.3 Venous Blood Potassium Urine Color Urine Clarity Urine pH Ur Specific [place] Urine Protein Urine Glucose (UA) Urine Ketones Urine Blood Urine Nitrate Urine Bilirubin Urine Urobilinogen Ur Leukocyte Esterase Urine WBC (Auto) Ur Squamous Epith Cells Urine Bacteria 07/18/18 07/18/18 16:50 17:10 WBC RBC Hgb Hct MCV MCH MCHC RDW Plt Count MPV Neut % (Auto) Lymph % (Auto) [place] % (Auto) Eos % (Auto) Baso % (Auto) Neut # (Auto) Lymph # (Auto) [place] # (Auto) Eos # (Auto) Baso # (Auto) pO2 35 VBG pH 7.38 VBG pCO2 36 L VBG HCO3 21.5 VBG Total CO2 22.4 VBG O2 Sat (Calc) 75.8 H VBG Base Excess -3.3 L VBG Potassium 3.6 Glucose 255 H Lactate 2.1 Sodium 135.0 Potassium Chloride 106.0 Carbon Dioxide Anion Gap BUN Creatinine Est GFR ( Amer) Est GFR (Non-Af Amer) POC Glucose (mg/dL) Random Glucose Calcium Total Bilirubin AST ALT Alkaline Phosphatase Total Protein Albumin Globulin Albumin/Globulin Ratio Venous Blood Potassium 3.6 Urine Color Straw Urine Clarity Clear Urine pH 5.0 Ur Specific [place] 1.005 Urine Protein Negative Urine Glucose (UA) 3+ H Urine Ketones Negative Urine Blood Trace H Urine Nitrate Negative Urine Bilirubin Negative Urine Urobilinogen Normal Ur Leukocyte Esterase Neg Urine WBC (Auto) < 1 Ur Squamous Epith Cells 1 Urine Bacteria Rare
[2018-07-18] MEDS: Sodium Chloride 0.9% 1,000 ML IV SCH (19:47)
[2018-07-18] MEDS: Moxifloxacin IV 400mg/250ml NS 400 MG/250 ML BAG IVPB SCH (20:19)
[2018-07-18] MEDS ORDERED: Dextrose 50% SYRINGE Inj (50 ml) IV PRN (22:04)
[2018-07-18] MEDS ORDERED: Glucagon Recombinant 1 mg Inj IM PRN (22:04)
[2018-07-18] MEDS: Nystatin 100,000 Units/ml Oral Susp 5 ml UD PO SCH (23:16)
[2018-07-18] MEDS: (Novolog) Insulin Aspart, Recombinant 100 u/ml 10 ml vial SC SCH (23:16)
[2018-07-19] MEDS ORDERED: guaiFENesin DM 200 mg-20 mg/10 ml UD PO STA (03:03)
[2018-07-19] MEDS: (Novolog) Insulin Aspart, Recombinant 100 u/ml 10 ml vial SC SCH ×4 (08:14→21:42)
[2018-07-19] MEDS: Nystatin 100,000 Units/ml Oral Susp 5 ml UD PO SCH ×4 (09:58→21:06)
[2018-07-19] MEDS: Enoxaparin 40 mg Syringe SC SCH (09:58)
[2018-07-19] MEDS: Pantoprazole 40 mg EC Tab PO SCH (09:58)
[2018-07-19] MEDS: Fluconazole IV 200mg/100 ml NS 100 MG in Premixed IV 1 EA IVPB SCH (10:02)
[2018-07-19] MEDS: Sodium Chloride 0.9% 1,000 ML IV SCH ×2 (10:03→21:55)
[2018-07-19] MEDS: guaiFENesin 200 mg/10 ml Syrup UD PO PRN (11:05)
--- NOTE | 2018-07-19 15:16 | CP.PCM.PN ---
Subjective - Date & Time of Evaluation Date of Evaluation: 07/19/18 Time of Evaluation: 08:45 - Subjective Subjective: clinically same Objective - Vital Signs/Intake and Output Vital Signs (last 24 hours): Temp Pulse Resp BP Pulse Ox 98 F 66 20 111/74 95 07/19/18 07:52 07/19/18 07:52 07/19/18 07:52 07/19/18 07:52 07/19/18 07:52 Intake and Output: 07/19/18 07/19/18 06:59 18:59 Intake Total 1300 840 Balance 1300 840 - Medications Medications: Current Medications Clonazepam (Klonopin) 2 mg PO HS DENY Last Admin: 07/18/18 22:26 Dose: 2 mg Dextrose (Dextrose 50% Inj) 0 ml IV STAT PRN; Protocol PRN Reason: Hypoglycemia Protocol Dextrose (Glutose 15) 0 gm PO ONCE PRN; Protocol PRN Reason: Hypoglycemia Protocol Enoxaparin Sodium (Lovenox) 40 mg SC DAILY DENY Last Admin: 07/19/18 09:58 Dose: 40 mg Glucagon (Glucagen Diagnostic Kit) 0 mg IM STAT PRN; Protocol PRN Reason: Hypoglycemia Protocol Guaifenesin (Robitussin) 200 mg PO Q4H PRN PRN Reason: Cough and congestion Last Admin: 07/19/18 11:05 Dose: 200 mg Haloperidol (Haldol) 4 mg PO HS DENY Last Admin: 07/18/18 23:16 Dose: 4 mg Fluconazole 100 mg/ (Miscellaneous) 50 mls @ 100 mls/hr IVPB DAILY DENY; Prot ocol Stop: 07/24/18 10:01 Last Admin: 07/19/18 10:02 Dose: 100 mls/hr Moxifloxacin HCl (Avelox Iv 400mg/250ml Ns) 400 mg in 250 mls @ 167 mls/hr IVPB Q24H DENY; Protocol Stop: 07/23/18 19:01 Last Admin: 07/18/18 20:19 Dose: 167 mls/hr Sodium Chloride (Sodium Chloride 0.9%) 1,000 mls @ 75 mls/hr IV .[id number] DENY Stop: 07/21/18 19:16 Last Admin: 07/19/18 10:03 Dose: 75 mls/hr Dextrose (Dextrose 5% In Water 1000 Ml) 1,000 mls @ 0 mls/hr IV .Q0M PRN; Protocol PRN Reason: Hypoglycemia Protocol Influenza Virus Vaccine (Fluzone Quad [id number]) 60 mcg IM .ONCE ONE Stop: 07/20/18 10:01 Insulin Aspart (Novolog) 0 unit SC ACHS [facility]; Protocol Last Admin: 07/19/18 12:58 Dose: 2 units Nystatin (Nystatin Oral Susp) 5 ml PO QID [facility] Last Admin: 07/19/18 14:02 Dose: 5 ml Pantoprazole Sodium (Protonix Ec Tab) 40 mg PO DAILY [facility] Last Admin: 07/19/18 09:58 Dose: 40 mg Pneumococcal Polyvalent Vaccine (Pneumovax 23 Vaccine) 0.5 ml IM .ONCE ONE Stop: 07/20/18 10:01 - Labs Labs: 07/18/18 16:41 07/18/18 16:41 - Constitutional Appears: Well - Head Exam Head Exam: ATRAUMATIC, NORMAL INSPECTION, NORMOCEPHALIC - Eye Exam Eye Exam: EOMI, Normal appearance, PERRL Pupil Exam: NORMAL ACCOMODATION, PERRL - ENT Exam ENT Exam: Mucous Membranes Moist, Normal Exam - Neck Exam Neck Exam: Full ROM, Normal Inspection. absent: Lymphadenopathy - Respiratory Exam Respiratory Exam: Decreased Breath Sounds - Cardiovascular Exam Cardiovascular Exam: REGULAR RHYTHM, +S1, +S2 - GI/Abdominal Exam GI & Abdominal Exam: Soft, Diminished Bowel Sounds - Rectal Exam Rectal Exam: Deferred
[2018-07-19] MEDS: Moxifloxacin IV 400mg/250ml NS 400 MG/250 ML BAG IVPB SCH (18:09)
--- NOTE | 2018-07-19 23:25 | CON ---
DATE: 07/19/2018 PSYCHIATRIC CONSULTATION CHIEF COMPLAINT AND REASON FOR CONSULTATION: The patient was referred by Dr. Gabo Anand for evaluation and comanagement. The patient has a history of depression, bipolar disorder. Has been taking Klonopin and Haldol. She is a patient of mine in the office. HISTORY OF PRESENT ILLNESS: This is a case of a 52-year-old female with a history of diabetes, thyroid problems, depression and bipolar. The patient was sent by her PMD, Dr. César Valenzuela, for admission for uncontrolled diabetes. The patient states diabetes runs in her family. Her father and her elder sister have history of diabetes and have been on insulin. The patient states she has been getting sick recently, complaining of some GI complaints of nausea, vomiting, watery diarrhea, and having oral thrush. The patient states she has been diabetic. She was prescribed by Dr. Valenzuela metformin, but according to her, it is not helping her. On admission, her blood sugar level was 288, hemoglobin A1c is 8.7. The patient states she is trying to control her diet, but her blood sugars today still elevated. The patient states that her sister is seeing an machine captain, and she is planning to see one. PAST MEDICAL HISTORY: History of depression and bipolar. The patient has been taking Klonopin and Haldol. The patient has been admitted numerous times to in the past for psychiatric decompensation. ALLERGIES: NO KNOWN ALLERGIES. DRUG AND ALCOHOL HISTORY: Denies any, although the patient is a smoker. PSYCHOSOCIAL HISTORY: The patient lives with her son as well as with her boyfriend. PSYCHIATRIC HISTORY: There is a history of psychiatric illness in the family. Mom with history of bipolar as well as history of alcohol dependence. MEDICATIONS: List of current medication that the patient is taking: The patient is on fluconazole, haloperidol 4 mg at bedtime, Klonopin 2 mg at bedtime, moxifloxacin, Lovenox, insulin, and pantoprazole. REVIEW OF SYSTEMS: CONSTITUTIONAL: The patient is alert and oriented x3, speaks in a raspy voice, seen in her room. She states, psych hodge, she is doing well, but worried about uncontrolled diabetes. She states she wants to see an machine captain. SKIN: No diaphoresis. HEENT: No headache or dizziness. The patient is complaining of oral thrush. NECK: Supple. RESPIRATORY: No dyspnea. CARDIOVASCULAR: No chest pain. GASTROINTESTINAL: Has off and on diarrhea. EXTREMITIES: Complaining of pain. The patient is ambulatory, but feeling weak. NEUROLOGIC: Alert and oriented x3. GENITOURINARY: No urinary problems. PHYSICAL EXAMINATION: VITAL SIGNS: Temperature is 98, heart rate 66, blood pressure 111/74, respirations 20, and oxygen saturation is 95%. MENTAL STATUS EXAMINATION: A well-developed female, is about 5 feet 3 inches, weighs 137 pounds. Mood hodge, the patient is calm and cooperative. Speech is spontaneous. Affect is reactive. Thought process, coherent. Thought content, the patient is concerned about her uncontrolled diabetes. She is afraid to go insulin as just like her sister and her father. No paranoia. No hallucinations. No suicidal or homicidal ideation. Attention and memory seem to be fair. Insight and judgement are fair. Impulse control is fair. LABORATORY DATA: Review of her labs: Her blood sugar level is 224. The patient had a UA that is positive for glucose. C. difficile and HIV tests are both negative. IMPRESSION: History of depression as well as bipolar disorder and uncontrolled diabetes. PLAN AND RECOMMENDATION: The patient is seen, meds reviewed. Continue present management. Psych hodge, we will keep her with her all current dose of psych meds, Klonopin 2 mg at bedtime and Haldol 4 mg at bedtime. The patient seems to be stable in this dose. We will monitor blood sugar. Continue treatment plan as outlined. The patient states that she might see an machine captain as diabetes runs in her family, her sister is on insulin. Continue treatment plan as ordered. Richard Flores MD
[2018-07-20] MEDS: Sodium Chloride 0.9% 1,000 ML IV SCH (02:40)
[2018-07-20 08:06] VITALS: RESP 20; O2SAT 97
[2018-07-20 08:56] LABS: BASO # 0.1 K/uL (0.0-0.2); BASO % 0.9 % (0.0-2.0); EOS # 0.2 K/uL (0.0-0.7); EOS % 3.2 % (0.0-4.0); HEMOGLOBIN 13.6 g/dL (11.0-16.0); LYMPH # 1.5 K/uL (1.0-4.3); LYMPH % 21.1 % (20.0-40.0); MEAN CORPUSCULAR HGB CONC 34.7 g/dL (33.0-37.0); MEAN PLATELET VOLUME 8.5 fL (7.2-11.7); MONO # 0.7 K/uL (0.0-0.8); MONO % 9.6 % (0.0-10.0); NEUT # 4.5 K/uL (1.8-7.0); NEUT % 65.2 % (50.0-75.0); RBC 3.99 Mil/uL (3.80-5.20); RED CELL DISTRIBUTION WIDTH 12.9 % (11.5-14.5); WHITE BLOOD COUNT 6.9 K/uL (4.8-10.8)
[2018-07-20 09:08] LABS: ALB/GLOB RATIO 1.3 (1.0-2.1); ALBUMIN 3.4 g/dL (3.5-5.0); ALT/SGPT 15 U/L (9-52); AST/SGOT 14 U/L (14-36); BLOOD UREA NITROGEN 10 mg/dL (7-17); CALCIUM 8.9 mg/dl (8.6-10.4); GFR NON-AFRICAN AMERICAN > 60
[2018-07-20] MEDS: (Novolog) Insulin Aspart, Recombinant 100 u/ml 10 ml vial SC SCH ×3 (09:23→16:30)
[2018-07-20] MEDS: Enoxaparin 40 mg Syringe SC SCH (09:30)
[2018-07-20] MEDS: Pantoprazole 40 mg EC Tab PO SCH (09:31)
[2018-07-20] MEDS: Nystatin 100,000 Units/ml Oral Susp 5 ml UD PO SCH ×2 (09:31→14:18)
[2018-07-20] MEDS: guaiFENesin 200 mg/10 ml Syrup UD PO PRN (09:33)
[2018-07-20] MEDS: Fluconazole IV 200mg/100 ml NS 100 MG in Premixed IV 1 EA IVPB SCH (09:35)
[2018-07-20] MEDS ORDERED: Pneumococcal 23-Valent Vaccine IM ONE (10:00)
[2018-07-20] MEDS ORDERED: Influenza Vaccine 60 MCG/0.5 ML SYR (3 yr & up) IM ONE (10:00)
--- NOTE | 2018-07-20 14:27 | CP.PCM.PN ---
Subjective - Date & Time of Evaluation Date of Evaluation: 07/20/18 Time of Evaluation: 08:00 - Subjective Subjective: clinically same Objective - Vital Signs/Intake and Output Vital Signs (last 24 hours): Temp Pulse Resp BP Pulse Ox 98.3 F 80 20 134/85 97 07/20/18 08:03 07/20/18 08:03 07/20/18 08:03 07/20/18 08:03 07/20/18 08:03 Intake and Output: 07/20/18 07/20/18 06:59 18:59 Intake Total 181 18 Balance 1817 - Medications Medications: Current Medications Clonazepam (Klonopin) 2 mg PO HS DENY Last Admin: 07/19/18 21:07 Dose: 2 mg Dextrose (Dextrose 50% Inj) 0 ml IV STAT PRN; Protocol PRN Reason: Hypoglycemia Protocol Dextrose (Glutose 15) 0 gm PO ONCE PRN; Protocol PRN Reason: Hypoglycemia Protocol Enoxaparin Sodium (Lovenox) 40 mg SC DAILY DENY Last Admin: 07/20/18 09:30 Dose: 40 mg Glucagon (Glucagen Diagnostic Kit) 0 mg IM STAT PRN; Protocol PRN Reason: Hypoglycemia Protocol Guaifenesin (Robitussin) 200 mg PO Q4H PRN PRN Reason: Cough and congestion Last Admin: 07/20/18 09:33 Dose: 200 mg Haloperidol (Haldol) 4 mg PO HS DENY Last Admin: 07/19/18 21:06 Dose: 4 mg Fluconazole 100 mg/ (Miscellaneous) 50 mls @ 100 mls/hr IVPB DAILY DENY; Prot ocol Stop: 07/24/18 10:01 Last Admin: 07/20/18 09:35 Dose: 100 mls/hr Moxifloxacin HCl (Avelox Iv 400mg/250ml Ns) 400 mg in 250 mls @ 167 mls/hr IVPB Q24H DENY; Protocol Stop: 07/23/18 19:01 Last Admin: 07/19/18 18:09 Dose: 167 mls/hr Sodium Chloride (Sodium Chloride 0.9%) 1,000 mls @ 75 mls/hr IV .[id number] DENY Stop: 07/21/18 19:16 Last Admin: 07/20/18 02:40 Dose: 75 mls/hr Dextrose (Dextrose 5% In Water 1000 Ml) 1,000 mls @ 0 mls/hr IV .Q0M PRN; Protocol PRN Reason: Hypoglycemia Protocol Insulin Aspart (Novolog) 0 unit SC ACHS [facility]; Protocol Last Admin: 07/20/18 13:00 Dose: 2 units Nystatin (Nystatin Oral Susp) 5 ml PO QID [facility] Last Admin: 07/20/18 14:18 Dose: 5 ml Pantoprazole Sodium (Protonix Ec Tab) 40 mg PO DAILY [facility] Last Admin: 07/20/18 09:31 Dose: 40 mg - Labs Labs: 07/20/18 08:43 07/20/18 08:43 - Constitutional Appears: Well - Head Exam Head Exam: ATRAUMATIC, NORMAL INSPECTION, NORMOCEPHALIC - Eye Exam Eye Exam: EOMI, Normal appearance, PERRL Pupil Exam: NORMAL ACCOMODATION, PERRL - ENT Exam ENT Exam: Mucous Membranes Moist, Normal Exam - Neck Exam Neck Exam: Full ROM, Normal Inspection. absent: Lymphadenopathy - Respiratory Exam Respiratory Exam: Decreased Breath Sounds - Cardiovascular Exam Cardiovascular Exam: REGULAR RHYTHM, +S1, +S2 - GI/Abdominal Exam GI & Abdominal Exam: Soft, Diminished Bowel Sounds - Rectal Exam Rectal Exam: Deferred
[2018-07-20 16:19] VITALS: BP 138/75; PULSE 67; TEMP 97.5
--- NOTE | 2018-07-20 16:21 | CP.PCM.CON ---
History of Present Illness - History of Present Illness History of Present Illness: 52 y/o female, with PMHx of diabetes, hypothyroidism, anxiety, and depression, is sent to ED by Dr. Valenzuela for admission for uncontrolled diabetes. Pt complains of intermittent nausea, vomiting, watery diarrhea, abdominal cramping for the past month. Pt also complains of oral thrush. Denies fever, back pain, headache, dizziness, or any other associated symptoms at this time. IV rx ordered on admission Pt improving with resolution of thrush - Medical History PMH: Anxiety, Depression, Diabetes, Fractures, Hypothyroidism Family History: States: Unknown Family Hx Review of Systems - Review of Systems All systems: reviewed and no additional remarkable complaints except - Constitutional Constitutional: As Per HPI - EENT Eyes: absent: As Per HPI, Blind Spots, Blurred Vision, Change in Vision, Decreased Night Vision, Diplopia, Discharge, Dry Eye, Exophthalmos, Floaters, Irritation, Itchy Eyes, Loss of Peripheral Vision, Pain, Photophobia, Requires Corrective Lenses, Sees Flashes, Spots in Vision, Tunnel Vision, Other Visual Disturbances, Loss of Vision, Other Ears: absent: As Per HPI, Decreased Hearing, Ear Discharge, Ear Pain, Tinnitus, Abnormal Hearing, Disequilibrium, Dizziness, Other Nose/Mouth/Throat: absent: As Per HPI, Epistaxis, Nasal Congestion, Nasal Discharge, Nasal Obstruction, Nasal Trauma, Nose Pain, Post Nasal Drip, Sinus Pain, Sinus Pressure, Bleeding Gums, Change in Voice, Dental Pain, Dry Mouth, Dysphagia, Halitosis, Hoarsness, Lip Swelling, Mouth Lesions, Mouth Pain, Odynophagia, Sore Throat, Throat Swelling, Tongue Swelling, Facial Pain, Neck Pain, Neck Mass, Other - Cardiovascular Cardiovascular: absent: As Per HPI, Acrocyanosis, Chest Pain, Chest Pain at Rest, Chest Pain with Activity, Claudication, Diaphoresis, Dyspnea, Dyspnea on Exertion, Edema, Irregular Heart Rhythm, Pain Radiating to Arm/Neck/Jaw, Leg Edema, Leg Ulcers, Lightheadedness, Orthopnea, Palpitations, Paroxysmal Nocturnal Dyspnea, Pedal Edema, Radiating Pain, Rapid Heart Rate, Slow Heart Rate, Syncope, Other - Respiratory Respiratory: absent: As Per HPI, Cough, Dyspnea, Hemoptysis, Dyspnea on Exertion, Wheezing, Snoring, Stridor, Pain on Inspiration, Chest Congestion, Excessive Mucous Production, Change in Mucous Color, Pain with Coughing, Other - Gastrointestinal Gastrointestinal: As Per HPI - Genitourinary Genitourinary: absent: As Per HPI, Change in Urinary Stream, Difficulty Urinating, Dysuria, Flank Pain, Hematuria, Pyuria, Nocturia, Urinary Incontinence, Urinary Frequency, Urinary Hesitance, Urinary Urgency, Voiding Freq/Small Amts, Freq UTI, Hx Renal/Bladder Calculi, Hx /Renal Surgery, Bladder Distension, Other - Reproductive: Female Reproductive:Female: absent: As Per HPI, Amenorrhea, Amenorrhea/ Control, Currently Menstual, Cycle <21 Days, Cycle >35 Days, Cycle Variable, Menses 1-7 Days, Menses >/= 8 Days, Menses Variable, Cycle > 4 Weeks Between, No Menses for 6 Months, Heavy Menses, Light Menses, Normal Menses, Spotting Between Cycles, S/P Hysterectomy, Menopausal, Post Menopausal, Premenarche, Abnormal Vaginal Bleeding, Dysmenorrhea, Dyspareunia, Genital Lesions, Genital Pruritis, Pelvic Pain, Prolapse Symptoms, Sexual Dysfunction, Vaginal Discharge, Vaginal Dryness, Vaginal Odor, Vaginal Pruritis, Other - Menstruation Menstruation: absent: As Per HPI, Amenorrhea, Amenorrhea/ Control, Currently Menstual, Cycle <21 Days, Cycle >35 Days, Cycle Variable, Menses 1-7 Days, Menses >/= 8 Days, Menses Variable, Cycle > 4 Weeks Between, No Menses for 6 Months, Heavy Menses, Light Menses, Normal Menses, Spotting Between Cycles, S/P Hysterectomy, Menopausal, Post Menopausal, Premenarche, Abnormal Vaginal Bleeding, Dysmenorrhea, Other - Musculoskeletal Musculoskeletal: absent: As Per HPI, Abnormal Gait, Arthralgias, Atrophy, Back Pain, Deformity, Joint Swelling, Limited Range of Motion, Loss of Height, Muscle Cramps, Muscle Weakness, Myalgias, Neck Pain, Numbness, Radiating Pain into Limb, Stiffness, Tingling, Other - Integumentary Integumentary: absent: As Per HPI, Acne, Alopecia, Bleeding Lesions, Change in Hair, Change in Nails, Change in Pigmentation, Changing Lesions, Dry Skin, Erythema, Furuncle, Hirsutism, Lesions, New Lesions, Non-Healing Lesions, Photosensitivity, Pruritus, Rash, Skin Pain, Skin Ulcer, Sores, Striae, Swelling, Unusual Bruising, Wounds, Jaundice, Other - Neurological Neurological: absent: As Per HPI, Abnormal Gait, Abnormal Hearing, Abnormal Movements, Abnormal Speech, Behavioral Changes, Burning Sensations, Confusion, Convulsions, Disequilibrium, Dizziness, Numbness, Focal Weakness, Frequent Falls, Headaches, Lack of Coordination, Loss of Vision, Memory Loss, Paresthesias, Radicular Pain, Restless Legs, Sensory Deficit, Syncope, Tingling, Tremor, Vertigo, Weakness, Other Visual Disturbances, Other - Psychiatric Psychiatric: As Per HPI - Endocrine Endocrine: As Per HPI - Hematologic/Lymphatic Hematologic: absent: As Per HPI, Easy Bleeding, Easy Bruising, Lymphadenopathy, Other Past Patient History - Infectious Disease Hx of Infectious Diseases: None - Past Medical History & Family History Past Medical History?: Yes - Past Social History Smoking Status: Heavy Smoker > 10 Cigarettes Daily - ENDOCRINE/METABOLIC Hx Diabetes Mellitus Type 2: Yes Hx Hypothyroidism: Yes - MUSCULOSKELETAL/RHEUMATOLOGICAL Hx Falls: No Hx Fractures: Yes - PSYCHIATRIC Hx Anxiety: Yes Hx Depression: Yes Hx Substance Use: No - SURGICAL HISTORY Hx Surgeries: No - ANESTHESIA Hx Anesthesia: Yes Hx Anesthesia Reactions: No Hx Malignant Hyperthermia: No Has any member of the family had a problem w/ anesthesia?: No Meds Allergies/Adverse Reactions: Allergies Allergy/AdvReac Type Severity Reaction Status Date / Time No Known Allergies Allergy Verified 07/18/18 15:36 - Medications Medications: Current Medications Clonazepam (Klonopin) 2 mg PO HS DENY Last Admin: 07/19/18 21:07 Dose: 2 mg Dextrose (Dextrose 50% Inj) 0 ml IV STAT PRN; Protocol PRN Reason: Hypoglycemia Protocol Dextrose (Glutose 15) 0 gm PO ONCE PRN; Protocol PRN Reason: Hypoglycemia Protocol Enoxaparin Sodium (Lovenox) 40 mg SC DAILY DENY Last Admin: 07/20/18 09:30 Dose: 40 mg Glucagon (Glucagen Diagnostic Kit) 0 mg IM STAT PRN; Protocol PRN Reason: Hypoglycemia Protocol Guaifenesin (Robitussin) 200 mg PO Q4H PRN PRN Reason: Cough and congestion Last Admin: 07/20/18 09:33 Dose: 200 mg Haloperidol (Haldol) 4 mg PO HS DENY Last Admin: 07/19/18 21:06 Dose: 4 mg Fluconazole 100 mg/ (Miscellaneous) 50 mls @ 100 mls/hr IVPB DAILY DENY; Protocol Stop: 07/24/18 10:01 Last Admin: 07/20/18 09:35 Dose: 100 mls/hr Moxifloxacin HCl (Avelox Iv 400mg/250ml Ns) 400 mg in 250 mls @ 167 mls/hr IVPB Q24H DENY; Protocol Stop: 07/23/18 19:01 Last Admin: 07/19/18 18:09 Dose: 167 mls/hr Sodium Chloride (Sodium Chloride 0.9%) 1,000 mls @ 75 mls/hr IV [id number] DENY Stop: 07/21/18 19:16 Last Admin: 07/20/18 02:40 Dose: 75 mls/hr Dextrose (Dextrose 5% In Water 1000 Ml) 1,000 mls @ 0 mls/hr IV .Q0M PRN; Protocol PRN Reason: Hypoglycemia Protocol Insulin Aspart (Novolog) 0 unit SC ACHS [facility]; Protocol Last Admin: 07/20/18 13:00 Dose: 2 units Nystatin (Nystatin Oral Susp) 5 ml PO QID [facility] Last Admin: 07/20/18 14:18 Dose: 5 ml Pantoprazole Sodium (Protonix Ec Tab) 40 mg PO DAILY [facility] Last Admin: 07/20/18 09:31 Dose: 40 mg Physical Exam - Constitutional Appears: Non-toxic, Chronically Ill - Head Exam Head Exam: NORMOCEPHALIC - Eye Exam Eye Exam: PERRL - ENT Exam ENT Exam: Mucous Membranes Dry - Neck Exam Neck exam: Negative for: Lymphadenopathy - Respiratory Exam Respiratory Exam: Decreased Breath Sounds - Cardiovascular Exam Cardiovascular Exam: REGULAR RHYTHM - GI/Abdominal Exam GI & Abdominal Exam: Diminished Bowel Sounds, Soft. absent: Tenderness - Rectal Exam Rectal Exam: Deferred - Exam Exam: NORMAL INSPECTION - Extremities Exam Extremities exam: Negative for: pedal edema - Back Exam Back exam: absent: CVA tenderness (L), CVA tenderness (R) - Neurological Exam Neurological exam: Alert, CN II-XII Intact, Oriented x3, Reflexes Normal - Psychiatric Exam Psychiatric exam: Depressed - Skin Skin Exam: Dry Results - Vital Signs Recent Vital Signs: Last Vital Signs Temp 98.3 F 07/20/18 08:03 Pulse 80 07/20/18 08:03 Resp 20 07/20/18 08:03 BP 134/85 07/20/18 08:03 Pulse Ox 97 07/20/18 08:03 - Labs Result Diagrams: 07/20/18 08:43 07/20/18 08:43 Labs: Laboratory Results - last 24 hr 07/19/18 07/19/18 07/20/18 16:19 21:18 07:25 WBC RBC Hgb Hct MCV MCH MCHC RDW Plt Count MPV Neut % (Auto) Lymph % (Auto) [place] % (Auto) Eos % (Auto) Baso % (Auto) Neut # (Auto) Lymph # (Auto) [place] # (Auto) Eos # (Auto) Baso # (Auto) Sodium Potassium Chloride Carbon Dioxide Anion Gap BUN Creatinine Est GFR ( Amer) Est GFR (Non-Af Amer) POC Glucose (mg/dL) 124 H 279 H 236 H Random Glucose Calcium Total Bilirubin AST ALT Alkaline Phosphatase Total Protein Albumin Globulin Albumin/Globulin Ratio 07/20/18 07/20/18 07/20/18 08:43 08:43 11:25 WBC 6.9 RBC 3.99 Hgb 13.6 Hct 39.1 MCV 98.0 MCH 34.0 H MCHC 34.7 RDW 12.9 Plt Count 231 MPV 8.5 Neut % (Auto) 65.2 Lymph % (Auto) 21.1 [place] % (Auto) 9.6 Eos % (Auto) 3.2 Baso % (Auto) 0.9 Neut # (Auto) 4.5 Lymph # (Auto) 1.5 [place] # (Auto) 0.7 Eos # (Auto) 0.2 Baso # (Auto) 0.1 Sodium 136 Potassium 4.3 Chloride 105 Carbon Dioxide 19 L Anion Gap 15 BUN 10 Creatinine 0.6 L Est GFR ( Amer) > 60 Est GFR (Non-Af Amer) > 60 POC Glucose (mg/dL) 203 H Random Glucose 283 H Calcium 8.9 Total Bilirubin 0.3 AST 14 D ALT 15 Alkaline Phosphatase 86 Total Protein 6.0 L Albumin 3.4 L Globulin 2.6 Albumin/Globulin Ratio 1.3 07/20/18 16:02 WBC RBC Hgb Hct MCV MCH MCHC RDW Plt Count MPV Neut % (Auto) Lymph % (Auto) [place] % (Auto) Eos % (Auto) Baso % (Auto) Neut # (Auto) Lymph # (Auto) [place] # (Auto) Eos # (Auto) Baso # (Auto) Sodium Potassium Chloride Carbon Dioxide Anion Gap BUN Creatinine Est GFR ( Amer) Est GFR (Non-Af Amer) POC Glucose (mg/dL) 161 H Random Glucose Calcium Total Bilirubin AST ALT Alkaline Phosphatase Total Protein Albumin Globulin Albumin/Globulin Ratio Assessment & Plan (1) Chronic diarrhea Status: Acute (2) Oral thrush Status: Acute (3) Uncontrolled diabetes mellitus Status: Acute - Assessment and Plan (Free Text) Assessment: improving on Insulin and diflucan cultures neg needs visiting nurse, endocrine eval
--- NOTE | 2018-07-21 08:13 | CARD ---
APPROVED REPORT Date of service: 07/18/2018 EKG Measurement Heart [id number] <Conclusion> Normal sinus rhythm Normal ECG
[2018-07-22 11:43] LABS: % CD4 (T HELPER CELL) 42 Percent (30-61); % CD8 (SUPPRESSOR T CELL) 22 Percent (12-42); ABSOLUTE CD4 CELLS 686 Cells/mcL (490-1740); ABSOLUTE CD8 CELLS 355 Cells/mcL (180-1170); ABSOLUTE LYMPHOCYTES 1646 Cells/mcL (850-3900); HELPER/SUPPRESSOR RATIO 1.93 Ratio (0.86-5.00)
== END 2018-07-20 18:35 | disposition left against medical advice (07) | DRG 392 ==
LOC: C.ER 15:10 → C.9E 17:54 → C.3T 20:37
PROVIDERS: ADMIT Internal Medicine Nephrology; ATTEND Internal Medicine Nephrology
DX: K52.9 Noninfective gastroenteritis and colitis, unspecified (principal); B37.0 Candidal stomatitis; E11.65 Type 2 diabetes mellitus with hyperglycemia; F31.9 Bipolar disorder, unspecified; E03.9 Hypothyroidism, unspecified; Z83.3 Family history of diabetes mellitus; Z87.891 Personal history of nicotine dependence

== ENCOUNTER 2019-02-23 12:54 | Outpatient (CLI) | payer MEDICARE | END 2019-02-23 12:55 | disposition home or self-care (01) | LOC: C.LAB 12:54 | DX: R63.4 Abnormal weight loss (principal) ==

== ENCOUNTER 2019-02-26 08:49 | Day surgery (SDC) | payer MEDICARE ==
[2019-02-25 12:48] VITALS: BMI 21.2
[2019-02-26] MEDS ORDERED: Propofol 10 mg/ml Inj (20 ML) ONE (11:26)
[2019-02-26] MEDS ORDERED: Midazolam 2 MG/2 ML VIAL ONE (11:26)
[2019-02-26] MEDS ORDERED: Lidocaine Hydrochloride 5 ML INJ ONE (11:41)
[2019-02-26 13:33] VITALS: BP 121/79; PULSE 83; RESP 21; TEMP 97.3; O2SAT 99
== END 2019-02-26 13:30 | disposition home or self-care (01) ==
LOC: C.ENDO 08:49
PROVIDERS: ATTEND Internal Medicine Gastroenterology
DX: Z12.11 Encounter for screening for malignant neoplasm of colon (principal); D12.0 Benign neoplasm of cecum; D12.2 Benign neoplasm of ascending colon; K64.1 Second degree hemorrhoids; K29.70 Gastritis, unspecified, without bleeding; K29.80 Duodenitis without bleeding; R63.4 Abnormal weight loss; E11.9 Type 2 diabetes mellitus without complications; E78.00 Pure hypercholesterolemia, unspecified; F32.9 Major depressive disorder, single episode, unspecified; F41.9 Anxiety disorder, unspecified; Z79.899 Other long term (current) drug therapy; F17.210 Nicotine dependence, cigarettes, uncomplicated
CPT/HCPCS: 43239; 45380; 45385; 82948; 84703; 88305; 88313; 88342; J2250; J2704

== ENCOUNTER 2019-02-27 12:07 | Outpatient (CLI) | payer MEDICARE | END 2019-02-27 12:08 | disposition home or self-care (01) | LOC: C.CTH 12:07 | DX: R63.4 Abnormal weight loss (principal) ==